=== PATIENT | female | born 1995 | race Caucasian/White ===

== ENCOUNTER 2021-06-14 18:42 | Inpatient (IN) | payer BC, SELFPAY ==
[~2021-06-14] VITALS: Ht 154.9 cm; Wt 93.0 kg
[2021-06-14] MEDS ORDERED: OXYTOCIN/0.9 % SODIUM CHLORIDE 1,000 ML IV SCH (20:15)
[2021-06-14] MEDS ORDERED: TERBUTALINE SULFATE 1 MG/ML VIAL SUBCUT ONE (20:15)
[2021-06-14 20:51] LABS: BASOPHILS % (AUTO) 0.3 % (0.0-2.0); EOSINOPHILS # (AUTO) 0.1 K/uL (0.0-0.4); HEMATOCRIT 39.2 % (36-48); HEMOGLOBIN 13.3 g/dL (12.0-16.0); LYMPHOCYTES # (AUTO) 1.9 K/uL (1.0-5.5); LYMPHOCYTES % (AUTO) 18.5 % (20.5-51.5); MEAN CORPUSCULAR HEMOGLOBIN 29 pg (27-31); MEAN CORPUSCULAR HGB CONC 34 % (32-36); MEAN CORPUSCULAR VOLUME 86 fL (79.0-98.0); MONOCYTES # (AUTO) 0.6 K/uL (0.0-1.0); MONOCYTES % (AUTO) 5.6 % (1.7-9.3); NEUTROPHILS # (AUTO) 7.8 K/uL (1.8-7.7); NEUTROPHILS % (AUTO) 74.6 % (40.0-70.0); PLATELET COUNT (AUTO) 183 K/uL (130-430); RED BLOOD CELL COUNT(AUTO) 4.58 MIL/uL (4.2-6.2); RED CELL DISTRIBUTION WIDTH 15.6 % (9.0-15.0); WHITE BLOOD COUNT (AUTO) 10.5 K/uL (4.8-10.8)
[2021-06-14] MEDS: NALBUPHINE HCL 10 MG/ML AMP IVP PRN ×2 (21:36→23:31)
[2021-06-14] MEDS: LR 1,000 ML IV SCH ×2 (21:37→23:34)
[2021-06-14] MEDS ORDERED: fentaNYL CITRATE/PF 100 MCG/2 ML AMP ONE (23:48)
[2021-06-14] MEDS ORDERED: ROPIVACAINE HCL/PF 0.2% 200 ML ONE (23:48)
[2021-06-15] MEDS ORDERED: LR 500 ML IV ONE (00:45)
[2021-06-15] MEDS ORDERED: FENT2mCg/mL-ROPIVA0.2%/NS EPID 200 ML EP SCH (00:45)
[2021-06-15] MEDS ORDERED: DERMOPLAST SPRAY TP PRN (04:30)
[2021-06-15] MEDS ORDERED: OXYTOCIN/0.9 % SODIUM CHLORIDE 1,000 ML IV ONE (04:30)
[2021-06-15] MEDS ORDERED: WITCH HAZEL LEAF 1 MED.PAD MED.PAD TP PRN (04:30)
[2021-06-15] MEDS ORDERED: HYDROcodone/ACETAMIN 5-325 MG TAB (NORCO/ VICODIN) PO PRN (04:45)
[2021-06-15] MEDS ORDERED: OXYCODONE/ACETAMINOPHEN 5-325 TABLET PO PRN ×2 (04:45)
[2021-06-15] MEDS ORDERED: ceFAZolin SODIUM 1 GM VIAL ONE (05:41)
[2021-06-15] MEDS ORDERED: ceFAZolin SODIUM 2 GM in D5W 100 ML IV SCH (06:00)
[2021-06-15] MEDS: IBUPROFEN 600 MG TABLET PO SCH ×2 (08:06→14:15)
[2021-06-15] MEDS ORDERED: ceFAZolin SODIUM 2 GM in D5W 50 ML IV ONE (14:00)
[2021-06-15] MEDS ORDERED: LIDOCAINE PF 1% 30ML(POUR BTL) INJ ONE (15:52)
[2021-06-15] MEDS ORDERED: MINERAL OIL 30 ML UDC PO ONE (15:52)
== END 2021-06-15 15:53 | disposition home or self-care (01) | DRG 807 ==
LOC: SPU 18:42 → OBSVTOIN 19:59
PROVIDERS: ADMIT Specialist; ATTEND Specialist
PROC: 10D07Z6 Extraction of Products of Conception, Vacuum, Via Natural or Artificial Opening (ICD-10-PCS; principal; 2021-06-15)
PROC: 3E0R3BZ Introduction of Anesthetic Agent into Spinal Canal, Percutaneous Approach (ICD-10-PCS; 2021-06-15)
PROC: 00HU33Z Insertion of Infusion Device into Spinal Canal, Percutaneous Approach (ICD-10-PCS; 2021-06-15)
PROC: 10907ZC Drainage of Amniotic Fluid, Therapeutic from Products of Conception, Via Natural or Artificial Opening (ICD-10-PCS; 2021-06-15)
DX: O69.2XX0 Labor and delivery complicated by other cord entanglement, with compression, not applicable or unspecified (principal); Z37.0 Single live birth; Z3A.38 38 weeks gestation of pregnancy; Z20.822 Contact with and (suspected) exposure to COVID-19
CPT/HCPCS: 36415; 81002; 85025; 86886; 86900; 86901; 94760; G0378; J0690; J2001; J2300; J2590; J3010; J7060